=== PATIENT | male | born 1995 | race Caucasian/White ===

== ENCOUNTER 2017-07-03 12:01 | Emergency (ER) | payer OTHER ==
[2017-07-03 12:21] VITALS: BP 121/67
--- NOTE | 2017-07-03 12:35 | UC ---
Ear Complaint HPI - HPI Summary HPI Summary: left ear pain x 3 days, + swelling, tenderness, discharge, no fever, no chills, no cough or cold sx no recent swimming - History of Current Complaint Chief Complaint: UCEar Stated Complaint: EAR PAIN Time Seen by Provider: 07/03/17 12:24 Hx Obtained From: Patient Onset/Duration: Gradual Onset, Lasting Days - 3, Still Present Severity Initially: Moderate Severity Currently: Moderate Aggravating Factors: Nothing Alleviating Factors: Nothing Associated Signs/Symptoms: Positive: Discharge, Hearing Loss, Swelling @. Negative: Foreign Body Sensation, Trauma to Ear, URI Symptoms - Allergies/Home Medications Allergies/Adverse Reactions: Allergies Allergy/AdvReac Type Severity Reaction Status Date / Time Amoxicillin Allergy Unknown Verified 07/03/17 12:21 Reaction Details Cefuroxime [From Ceftin] Allergy Unknown Verified 07/03/17 12:21 Reaction Details Home Medications: Home Medications Ibuprofen TAB* [Advil TAB*] 400 mg PO Q6H PRN 07/03/17 [History Confirmed ] PMH/Surg Hx/FS Hx/Imm Hx Previously Healthy: Yes - Surgical History Surgical History: Yes Surgery Procedure, Year, and Place: medical port inserted and removed from right chest - Family History Known Family History: Negative: Diabetes - Social History Alcohol Use: Occasionally Substance Use Type: None Smoking Status (MU): Never Smoked Tobacco - Immunization History Most Recent Influenza Vaccination: no Review of Systems Constitutional: Negative Skin: Negative Eyes: Negative ENT: Ear Ache Respiratory: Negative Cardiovascular: Negative Gastrointestinal: Negative Is Patient Immunocompromised?: No All Other Systems Reviewed And Are Negative: Yes Physical Exam Triage Information Reviewed: Yes Appearance: Well-Appearing, No Pain Distress, Well-Nourished Vital Signs: Initial Vital Signs Temp 100.1 F 07/03/17 12:18 Pulse 83 07/03/17 12:18 Resp 14 07/03/17 12:18 BP 121/67 07/03/17 12:18 Pulse Ox 100 07/03/17 12:18 Vital Signs Reviewed: Yes Eye Exam: Normal Eyes: Positive: Conjunctiva Clear ENT: Positive: Normal ENT inspection, Hearing grossly normal, Other: - left ear : + swelling, erythem , edema of the ear canal , tenderness, white discharge. Negative: TMs normal, TM bulging, TM dull, TM red Neck exam: Normal Neck: Positive: Supple, Nontender, No Lymphadenopathy Respiratory: Positive: Chest non-tender, Lungs clear, Normal breath sounds Cardiovascular: Positive: RRR, No Murmur, Pulses Normal Skin Exam: Normal Ear Complaint Course/Dx - Differential Dx/Diagnosis Provider Diagnoses: otitis externa Discharge - Discharge Plan Condition: Stable Disposition: HOME Prescriptions: Azithromycin TAB* [Zithromax TAB (Z-PRANAV) 250 mg #6 tabs] 2 tab PO .TODAY, THEN 1 DAILY #1 pranav Neomyc/Polym/HC 1% OTIC SUSP* [Cortisporin Otic Susp 1%*] 4 drop LEFT EAR QID # 1 btl Patient Education Materials: Otitis Externa (ED) Additional Instructions: follow up in 5 days for recheck, sooner if getting worse
== END 2017-07-03 12:41 | disposition home or self-care (01) ==
LOC: UCCORT 12:01
DX: H60.92 Unspecified otitis externa, left ear (principal); Z88.1 Allergy status to other antibiotic agents
CPT/HCPCS: 99202; G0463